=== PATIENT | male | born 1950 | race Caucasian/White ===

== ENCOUNTER 2022-07-10 13:10 | Outpatient (RCR) | payer OTHER, MEDICARE, SELFPAY ==
--- NOTE | 2022-07-11 14:18 | OT.OPGNE ---
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 The patient lives with his significant other who is able to assist patient minimally. He reports current I in dressing and mobility without an AD. He was educated on sling donning and doffing, post op exercises, polar care , positioning and one handed dressing. Patient asked great questions and all were answered satisfactorily. Occupational Therapy Treatment Plan - OP Goals Goals Within 1 visit, the patient will.. 1. understand how to don and doff sling, dress one handed, positioning and post op exercises. goal met Progress met Treatment Plan Treatment Plan Evaluation,Self-Care/Home Management,Education Certification Certification I Certify That: Therapy Services Provided, Therapy Plan Established, Therapy Plan Reviewed Recertification Information Recertification Information Initial Certification Date 07/10/22 Recertification Start Date 07/03/22 Provider Signature Shows Agreement With POC & Medical Necessity Physician Comment/Change Comment or Changes Physician NPI Number #
== END 2022-10-09 23:59 | disposition home or self-care (01) ==
PROVIDERS: Visit Provider Orthopaedic Surgery
DX: M19.012 Primary osteoarthritis, left shoulder (principal); M75.122 Complete rotator cuff tear or rupture of left shoulder, not specified as traumatic; S46.212A Strain of muscle, fascia and tendon of other parts of biceps, left arm, initial encounter; Z51.89 Encounter for other specified aftercare
CPT/HCPCS: 97110; 97165; 97535; X5282

== ENCOUNTER 2022-07-24 08:23 | Day surgery (SDC) | payer OTHER, MEDICARE, SELFPAY ==
[2022-07-22] MEDS: LACTATED RINGERS 1000 ML 1,000 ML 100 ML IV (07:00)
[2022-07-22 07:48] VITALS: BP 124/94; PULSE 99; RESP 16; TEMP 37.7; O2SAT 96
[2022-07-22] MEDS: ACETAMINOPHEN 500 MG TABLET 1000 MG PO (07:53)
[2022-07-22] MEDS: CELECOXIB 200 MG CAPSULE PO (07:54)
[2022-07-22 07:58] VITALS: BMI 27.2
--- NOTE | 2022-07-22 08:16 | SUR.PREOP ---
PRE-OP SHOULDER WASH WITH HYDROGEN PEROXIDE AND ALCOHOL COMPLETE
--- NOTE | 2022-07-22 09:17 | SUR.PREOP ---
PATIENT SURGERY IS BEING CANCELLED FOR TODAY. PATIENT WENT INTO A-FIB WHEN GETTING READY TO DO THE PAIN BLOCK. HIS HAS BEEN NOTIFIED. POSSIBLY RESCHEDULED FOR THURSDAY.
[2022-07-24] VITALS (16 sets, daily range): BP systolic 96–137; BP diastolic 58–96; PULSE 48–57; RESP 12–20; TEMP 36.4–36.9; O2SAT 93–100; BMI 27.2
[2022-07-24] MEDS: SODIUM CHLORIDE 0.9 % (FLUSH) 10 ML SYRINGE IVF (09:14)
[2022-07-24] MEDS: LACTATED RINGERS 1000 ML 1,000 ML 100 ML IV ×2 (09:15→10:28)
[2022-07-24] MEDS: CELECOXIB 200 MG CAPSULE PO (09:18)
[2022-07-24] MEDS: ACETAMINOPHEN 500 MG TABLET 1000 MG PO ×3 (09:18→23:25)
--- NOTE | 2022-07-24 09:33 | SUR.PREOP ---
TIME?OUT:?9:35 PT/RN/MDA?VERIFICATION?OF?SURGICAL?SITE Left Shoulder,?PROCEDURE Nerve Block,?AND?CONSENT OBTAINED?PRIOR?TO?INVASIVE?PROCEDURE Y
[2022-07-24] MEDS: fentaNYL 100 MCG/2 ML inj IVP (09:35)
[2022-07-24] MEDS: MIDAZOLAM HCL 1 MG/ML inj IVP (09:35)
[2022-07-24] MEDS: CEFAZOLIN 2 GM INJ IVP (09:52)
[2022-07-24] MEDS: TRANEXAMIC ACID 100 MG/ML INJ 1000 MG IV (09:55)
--- NOTE | 2022-07-24 10:43 | P.NB_ITS ---
Nerve Block Nerve Block Time Seen by Provider: 09:36 Date Seen: 07/24/22 Type of block requested by surgeon for post-operative analgesia: supraclavicular Side: left Time out performed: Yes Verification of patient name: Yes Verification of date of : Yes Site marking: site marked Name of person performing procedure: Anil Continuous monitoring Was continuous monitoring of O2 sat, B/P, monitor technician, recorded every 15 minutes?: Yes Procedure Checklist: sterile prep, needles and gloves Ultrasound guided. Images saved: Yes Medications given in 5ml increments after negative aspiration: Ropivicaine %: 0.5 mL: 20 Needle gauge: 22 Decadron (mg): 10 Precedex (mcg): 25 Patient tolerated procedure well: Yes Block Charges Block Charge (with Pro Fee): Brachial Plexus Use of Ultrasound Machine for Block: Yes- US Guidance/pain block
--- NOTE | 2022-07-24 10:43 | W.ANESCHARGE ---
Anesthesia Charges Start Date/Time Anesthesia Start Date: 07/24/22 Anesthesia Start Time: 09:42 Stop Date/Time Anesthesia Stop Date: 07/24/22 Anesthesia Stop Time: 12:52 Summary Extremes of Age - Over 70 or under 1: MDA
--- NOTE | 2022-07-24 12:12 | CRLHL7_ITS ---
For Patients: As a result of the Cures Act, medical imaging exams and procedure reports are released immediately into your electronic medical record. You may view this report before your referring provider. If you have questions, please contact your health care provider. Indication: POSTOP REVERSE SHOULDER ARTHROPLASTY Technique: Two views left shoulder Findings/Impression: Hardware from a left reverse total shoulder arthroplasty is in satisfactory position. Bone alignment is normal. No sign of acute fracture. Postop changes are within normal limits. Dictated by Derrell Forbes MD @ 07/24/2022 1:22:38 PM (Electronically Signed)
--- NOTE | 2022-07-24 12:14 | P.ORPRC_ITS ---
Procedure Note Date of procedure: 07/24/22 Procedure: PREOPERATIVE DIAGNOSIS: Left shoulder rotator cuff tear arthropathy POSTOPERATIVE DIAGNOSIS: Left shoulder rotator cuff tear arthropathy NAME OF OPERATION: Left upper extremity reverse shoulder arthroplasty SURGEON: Dennis Charles MD FIRE HYDRANT OPERATOR: Jessie Devi PA-C, EDEL Snow ANESTHESIA: General endotracheal ESTIMATED BLOOD LOSS: 100 mL COMPLICATIONS: None SPECIMENS: None DRAINS: None PREOPERATIVE ANTIBIOTICS: Ancef 2 grams IMPLANTS: 1. Tornier 29 mm x 40 mm baseplate 2. 39 mm standard glenosphere 3. 6B humeral stem 4. Low eccentric +0 humeral tray 5. 36mm +6 polyethylene INDICATIONS: The patient is a 71-year-old with a longstanding history of severe, unrelenting left shoulder pain secondary to rotator cuff tear arthropathy. Despite appropriate nonoperative management, including activity modification, anti-inflammatories, [id number] pain medication, physical therapy, and injections they continue to have pain and disability. Operative intervention was offered. The risks, benefits and expected outcomes were discussed in detail. These included but were not limited to: Infection, bleeding, injury to blood vessel or nerve, venous thromboembolism. All questions were answered to their satisfaction. Use of an operations and intelligence assistant was necessary throughout the case for patient positioning and safety, soft tissue retraction, and closure. PROCEDURE: General anesthesia was administered. The patient was placed in the lazy beach chair position on the operating room table. The left upper extremity was prepped and draped in the usual sterile fashion. A standard deltopectoral incision was made. Subcutaneous dissection was taken with electrocautery to the deltopectoral interval. The cephalic vein was mobilized, lateral branches were cauterized. The vein was taken medially with the pectoralis. We bluntly entered the deltopectoral interval. We freed up the deltoid. The upper 1/3 of the insertion of the pectoralis was divided with cautery. The static retractor was placed. The clavipectoral fascia and CA ligament were divided. The circumflex vessels were controlled with electrocautery. The biceps was dissected out of the bicipital groove, was tagged with a #2 FiberWire suture and divided proximally. Two fiberWire sutures were placed in the subscapularis. The subscap was subperiosteally elevated off of the lesser tuberosity. The humeral head was delivered into the wound. The intramedullary humeral cutting guide was placed. We made the cut at the anatomic neck, in 30? of retroversion. Humeral sounds were used to assess the diameter of the canal. The broach was placed and had good rotational stability. The calcar reamer was used and the protective base plate cover was placed. Attention was then turned to the glenoid. Hohmann retractors were placed posteriorly. The labrum and biceps stump were sharply debrided. The origin of the inferior glenohumeral ligaments were subperiosteally released off of the glenoid. The drill guide was placed. The guide pin was placed in 0? of cephalic tilt. The reamer was used to bleeding bone. This did not appear to have enough cephalic tilt. Therefore, we removed the guide pin and used the 10 degree cephalic tilt guide. The guide pin was replaced. The Reamer was used again. This nicely corrected the cephalic tilt. The central drill was used x2. The tap was used. The standard base plate was placed. This had excellent purchase. Locking screws were placed. The glenosphere was placed, the set screw was tightened. Attention then returned to the humerus. We placed a low eccentric standard base plate and standard poly. We reduced the shoulder and took it through a range of motion. It was found to be stable with appropriate soft tissue tension. Trial humeral components were removed. The biceps was tenodesed in the bicipital groove with drill holes and our previously placed FiberWire suture. We placed #2 FiberWire sutures in the lesser tuberosity for subsequent subscap repair. We assembled the humeral component on the back table. We placed it in the center of our subscapularis repair sutures and tapped it down to our humeral cut. This had excellent purchase. The shoulder was reduced and again was found to be stable with appropriate soft tissue tension. We did a 3 min dilute Betadine solution soak. We irrigated the wound with 3 L of normal saline via pulse lavage. We repaired the subscapularis to the lesser tuberosity with our previously placed FiberWire sutures. The deltopectoral interval was loosely reapproximated with an 0 Vicryl in an interrupted [id number] fashion. Subcutaneous tissues were closed with the 2-0 Vicryl and a running 3-0 Monocryl suture. The skin was sealed with glue. A dry dressing and sling were applied. Sponge and needle counts were correct x2. The patient tolerated the procedure well, there were no apparent complications. They were awakened and extubated in the operating room, taken to the postanesthesia care unit in satisfactory condition. PLAN: The patient will be mobilized with physical therapy. The sling will be used for 6 weeks postoperatively. Active range of motion in forward flexion and abduction as tolerates. No external rotation greater than 0? for 6 weeks postoperatively. They will be discharged to home once medically appropriate.
--- NOTE | 2022-07-24 12:52 | W.ANESCHARGE ---
Anesthesia Charges Start Date/Time Anesthesia Start Date: 07/24/22 Anesthesia Start Time: 09:42 Stop Date/Time Anesthesia Stop Date: 07/24/22 Anesthesia Stop Time: 12:52
--- NOTE | 2022-07-24 13:18 | SUR.PREOP ---
I have reviewed and concur with all assessments, medication administration, and documentation completed by Bry, student nurse.?
[2022-07-24] MEDS: LACTATED RINGERS 1000 ML 1,000 ML 75 ML IV (14:32)
--- NOTE | 2022-07-24 18:02 | PM.IMCN1 ---
Date of Consult Patient: Lux Patient Consult date: 07/24/22 Requesting Physician: Orthopedics Primary Care Provider: Di Andre CNP Consult Narrative Reason for consult: Management of medical problems after shoulder surgery Narrative: Dylan Young is a 71 year old right-handed male with history of atrial fibrillation, PE, heart failure, diabetes seen in followup of left total shoulder arthroplasty. Procedures performed by Dr. Charles requests consult for medical management following surgery. Patient was scheduled for surgery 2 days ago but preoperatively went into atrial fibrillation. Patient has been on metoprolol 200 mg daily chronically and took his last dose 1 week ago. He thought he was advised by his provider to stop all outpatient medications before surgery. He was in atrial fibrillation but not symptomatic. He took 1 dose of metoprolol and went back into sinus rhythm. Clinic records indicate he was advised to stop his rivaroxaban with his last dose on July 18. He was advised to avoid his losartan for 24 hours before surgery but continue his metoprolol until surgery. In the last 2 days he has been taking all of his medications except rivaroxaban. He had no symptoms associated with his atrial fibrillation. He did not have shortness of breath, chest pain, lightheadedness, unusual dyspnea. Preoperatively he reports he has been generally feeling fine. He gets healthcare through the [facility] and through [facility] in [place]. He tells me the [facility] is contemplating right carpal tunnel surgery, left total knee arthroplasty for him. Review of Systems Narrative: No recent illness or injury. Issues with atrial fibrillation, asymptomatic, as noted above. [facility] Medical History (Updated 07/24/22 @ 18:14 by Toñito Langley MD) Pulmonary embolism ?I26.99 - Other pulmonary embolism without acute cor pulmonale (ICD-10) Arthritis of left acromioclavicular joint ?M19.012 - Primary osteoarthritis, left shoulder (ICD-10) Strain of left biceps ?S46.212A - Strain of muscle, fascia and tendon of other parts of biceps, left arm, initial encounter (ICD-10) Rotator cuff tear, left ?M75.102 - Unspecified rotator cuff tear or rupture of left shoulder, not specified as traumatic (ICD-10) Stage 3a chronic kidney disease ?N18.31 - Chronic kidney disease, stage 3a (ICD-10) Congestive heart failure ?I50.9 - Heart failure, unspecified (ICD-10) Type 2 diabetes mellitus without complication ?E11.9 - Type 2 diabetes mellitus without complications (ICD-10) Hyperlipidemia ?E78.5 - Hyperlipidemia, unspecified (ICD-10) Old myocardial infarct ?I25.2 - Old myocardial infarction (ICD-10) Peripheral vascular disease ?I73.9 - Peripheral vascular disease, unspecified (ICD-10) Vascular disease ?I99.9 - Unspecified disorder of circulatory system (ICD-10) HTN (hypertension) ?I10 - Essential (primary) hypertension (ICD-10) ADRIAN (obstructive sleep apnea) ?G47.33 - Obstructive sleep apnea (adult) (pediatric) (ICD-10) A-fib ?I48.91 - Unspecified atrial fibrillation (ICD-10) Borderline diabetes ?R73.03 - Prediabetes (ICD-10) DVT (deep venous thrombosis) ?I82.409 - Acute embolism and thrombosis of unspecified deep veins of unspecified lower extremity (ICD-10) Surgical History (Updated 07/24/22 @ 18:13 by Toñito Langley MD) Status post replacement of left shoulder joint ?Z96.612 - Presence of left artificial shoulder joint (ICD-10) Hx of reconstruction of anterior cruciate ligament tear ?Z98.890 - Other specified postprocedural states (ICD-10) History of total right knee replacement ?Z96.651 - Presence of right artificial knee joint (ICD-10) History of arthroscopy of right shoulder ?Z98.890 - Other specified postprocedural states (ICD-10) Family History (Updated 07/24/22 @ 18:08 by Toñito Langley MD) Mother Hypotension Diabetes Father Lung cancer Social History (Updated 07/24/22 @ 18:11 by Toñito Langley MD) Narrative: He lives between [facility] with his significant other-Delilah. She is his healthcare power of managing attorney. His code status is DNR. He does not smoke. Drinks 2-4 alcoholic beverages per day. Smoking Status: Former smoker What tobacco products do you use: cigarettes Smoking quit date/years: >15 years ago Do you use any of these nicotine containing products: None Second hand tobacco smoke exposure: No How often do you have a drink containing alcohol: 2-4 times a month Alcohol type: beer and hard liquor How many standard drinks containing alcohol do you have on a typical day: 1 or 2 How often do you have six or more drinks on one occasion: Never AUDIT-C Alcohol total score: 2 Non-prescribed substance use: denies use Caffeine: Yes (coffee, 5 cups/week) service: Yes Meds Home Medications and Allergies Home Medications Medication Instructions Recorded Confirmed Type atorvastatin 40 mg tablet 20 mg PO HS 07/07/22 07/24/22 History cetirizine 10 mg tablet 10 mg PO QDAY PRN 07/07/22 07/24/22 History losartan 50 mg tablet 50 mg PO QDAY 07/07/22 07/24/22 History metoprolol succinate 200 mg 200 mg PO QDAY 07/07/22 07/24/22 History tablet,extended release 24 hr potassium chloride 20 mEq 20 meq PO QDAY 07/07/22 07/24/22 History tablet,extended release rivaroxaban 20 mg tablet (Xarelto) 20 mg PO QPM 07/07/22 07/22/22 History glucosamine sulfate 500 mg tablet 500 mg PO DAILY 07/22/22 07/24/22 History (Glucosamine) metformin 500 mg tablet,extended 1,000 mg PO BIDWM 07/22/22 07/24/22 History release 24 hr multivitamin (Daily Multi-Vitamin 1 tab PO DAILY 07/22/22 07/24/22 History tablet) Home Medication Comments: He has cut his metformin down to a 1000 mg in the morning and 500 mg in the evening due to diarrhea Allergies Allergy/AdvReac Type Severity Reaction Status Date / Time lisinopril Allergy Verified 07/24/22 08:43 oxycodone Allergy Verified 07/24/22 08:43 Exam Narrative: Exam Narrative: He is alert and appears in no distress. Eyes normal. Oropharynx normal. Neck is supple out mass or adenopathy. Respirations are clear to auscultation. Symmetric breath sounds. Cardiovascular: S1, S2, regular rate and rhythm. Abdomen: Bowel sounds active. Abdomen is soft without tenderness or mass. He has normal right upper extremity sensation motion and pulses. Left upper extremity is warm with good radial pulses. He has no motion in his left hand and minimal sensation in his left fingers. He reports fairly dense anesthesia over his left upper extremity the time I am seeing him. Lower extremities without edema intact pedal pulses and motion in both legs. Const: Vital Signs, click to edit/add: Vital Signs - 24 hr 07/24/22 09:02 07/24/22 09:33 07/24/22 09:35 Temperature 98.3 F Pulse Rate 52 L 52 L 53 L Respiratory Rate 16 16 16 Blood Pressure 132/87 137/91 H 133/91 H Pulse Oximetry 97 100 99 Oxygen Delivery Me thod Room Air Nasal Cannula Nasal Cannula Oxygen Flow Rate 3 3 07/24/22 12:48 07/24/22 12:55 07/24/22 13:00 Temperature 97.9 F Pulse Rate 57 L 56 L 56 L Respiratory Rate 12 12 14 Blood Pressure 116/69 113/73 106/79 Pulse Oximetry 93 93 93 Oxygen Delivery Me thod Room Air Oxygen Flow Rate 07/24/22 13:05 07/24/22 13:10 07/24/22 13:15 Temperature 98.1 F Pulse Rate 54 L 55 L 53 L Respiratory Rate 16 20 16 Blood Pressure 96/58 L 130/79 114/83 Pulse Oximetry 95 93 96 Oxygen Delivery Me thod Oxygen Flow Rate Documenting provider has reviewed patient's vital signs: yes Assessment and Plan Assessment and plan (1) Status post replacement of left shoulder joint: Problem comment: 07/24/[address] Charlse Status: Acute (2) ADRIAN (obstructive sleep apnea): Problem comment: On CPAP Status: Acute (3) Congestive heart failure: Problem comment: Had reduced ejection fraction of 20 to 25% . Was treated for atrial fibrillation and heart failure and follow-up echo in 2019 showed ejection fraction of 50%. Currently appears to be well compensated. Status: Acute (4) Type 2 diabetes mellitus without complication: Status: Acute (5) Pulmonary embolism: Problem comment: Resume rivaroxaban for AFib and pulmonary embolism/vte prophylaxis Status: Acute (6) A-fib: Problem comment: Paroxysmal. Surgery postponed 2 days. Now in sinus rhythm. Status: Acute Plan Patient will be observed in the hospital overnight for any medical complications and manage postoperative symptoms. PT OT and routine pain medication management. Home CPAP. Resume home medications including rivaroxaban. Monitor for AFib. Total time spent today is 40 minutes, 30 minutes in coordination of care and discussing with patient and other providers ongoing evaluation management of postoperative care and management of medical problems
[2022-07-24] MEDS: CEFAZOLIN 2 GM in 0.9 % SODIUM CHLORIDE Mini-bag 100 ML IVPB ×2 (18:57→23:25)
[2022-07-24] MEDS: METFORMIN ER 500 MG PO (18:58)
[2022-07-24] MEDS: RIVAROXABAN 10 MG TABLET 20 MG PO (18:58)
--- NOTE | 2022-07-24 20:30 | PC.NURSE ---
Nursing Care Hours: [id number] Pt this shift arrived from PACU alert and oriented. Pale skin, VSS, bradycardia. Left extremity numb, pulse present and regular. Arm in sling, bandage CDI. Ice applied. IV patent. Advanced to regular diet, tolerated well. Up to void and sit in recliner.
[2022-07-24] MEDS: SENNOSIDES 1 TAB TABLET 2 TAB PO (20:55)
[2022-07-24] MEDS: ATORVASTATIN CALCIUM 40 MG TABLET 20 MG PO (20:55)
[2022-07-25 03:00] VITALS: BP 113/78; PULSE 54; RESP 16; TEMP 36.6; O2SAT 98
[2022-07-25] MEDS: LACTATED RINGERS 1000 ML 1,000 ML 75 ML IV (03:13)
[2022-07-25] MEDS: ACETAMINOPHEN 500 MG TABLET 1000 MG PO (06:09)
[2022-07-25 07:00] VITALS: BP 115/78; PULSE 56; RESP 18; TEMP 36.6
[2022-07-25 07:29] LABS: Hematocrit 34.7 % (37.0-53.0); Hemoglobin* 11.9 gm/dL (13.5-17.5); Mean Corpuscular HGB Conc 34 gm/dL (32-36); Mean Corpuscular Hemoglobin 32 pg (26-34); Mean Corpuscular Volume 92 fL (80-100); Platelet Count* 166 K/uL (140-440); Red Blood Count 3.78 m/uL (4.30-5.90); White Blood Count* 10.44 K/uL (4.50-11.00)
[2022-07-25 07:40] LABS: Slide Review Reflex No
--- NOTE | 2022-07-25 07:41 | PM.ORPN ---
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 Interval history: Dylan is comfortable this morning. He denies nausea, vomiting. He has little movement in his left upper extremity. Block is working well. Ortho Exam Narrative Exam Narrative: Alert and oriented x3. Patient is in no acute distress. Converses without labored breathing. Hearing is grossly intact. Ambulates with a normal gait. Left upper extremity is in a sling. Emanation of left upper extremity shows the hand is warm. Capillary refill less than 2 seconds. Dressing is intact. Edema is present. No sign of infection. No erythema. Slight flexion of his fingers. No extension of the fingers or wrist. Const Vital Signs, click to edit/add: Vital Signs - 24 hr 07/24/22 09:02 07/24/22 09:33 07/24/22 09:35 Temperature 98.3 F Pulse Rate 52 L 52 L 53 L Pulse Rate [Left Pulse Oximeter] Pulse Rate [Left Radial] Respiratory Rate 16 16 16 Blood Pressure 132/87 137/91 H 133/91 H Blood Pressure [Right Arm] Pulse Oximetry 97 100 99 Oxygen Delivery Method Room Air Nasal Cannula Nasal Cannula Oxygen Flow Rate 3 3 07/24/22 12:48 07/24/22 12:55 07/24/22 13:00 Temperature 97.9 F Pulse Rate 57 L 56 L 56 L Pulse Rate [Left Pulse Oximeter] Pulse Rate [Left Radial] Respiratory Rate 12 12 14 Blood Pressure 116/69 113/73 106/79 Blood Pressure [Right Arm] Pulse Oximetry 93 93 93 Oxygen Delivery Method Room Air Oxygen Flow Rate 07/24/22 13:05 07/24/22 13:10 07/24/22 13:15 Temperature 98.1 F Pulse Rate 54 L 55 L 53 L Pulse Rate [Left Pulse Oximeter] Pulse Rate [Left Radial] Respiratory Rate 16 20 16 Blood Pressure 96/58 L 130/79 114/83 Blood Pressure [Right Arm] Pulse Oximetry 95 93 96 Oxygen Delivery Method Oxygen Flow Rate 07/24/22 13:45 07/24/22 14:00 07/24/22 14:15 Temperature 97.6 F Pulse Rate 53 L Pulse Rate [Left Pulse Oximeter] 48 L Pulse Rate [Left Radial] 54 L Respiratory Rate 18 18 18 Blood Pressure Blood Pressure [Right Arm] 117/96 H 123/80 118/77 Pulse Oximetry 97 97 Oxygen Delivery Method Room Air Room Air Room Air Oxygen Flow Rate 07/24/22 14:15 07/24/22 14:30 07/24/22 15:00 Temperature 97.7 F Pulse Rate Pulse Rate [Left Pulse Oximeter] 48 L 50 L Pulse Rate [Left Radial] 48 L Respiratory Rate 18 18 18 Blood Pressure Blood Pressure [Right Arm] 114/77 103/81 107/73 Pulse Oximetry 97 96 96 Oxygen Delivery Method Room Air Room Air Room Air Oxygen Flow Rate 07/24/22 20:07 07/24/22 23:00 07/24/22 23:00 Temperature 98.5 F 98.2 F Pulse Rate Pulse Rate [Left Pulse Oximeter] 57 L 57 L 57 L Pulse Rate [Left Radial] Respiratory Rate 16 16 16 Blood Pressure Blood Pressure [Right Arm] 114/84 112/83 Pulse Oximetry 97 97 Oxygen Delivery Method Room Air Room Air Oxygen Flow Rate 07/25/22 03:00 Temperature 97.8 F Pulse Rate Pulse Rate [Left Pulse Oximeter] 54 L Pulse Rate [Left Radial] Respiratory Rate 16 Blood Pressure Blood Pressure [Right Arm] 113/78 Pulse Oximetry 98 Oxygen Delivery Method Room Air Oxygen Flow Rate Assessment and Plan Assessment and plan (1) Status post replacement of left shoulder joint: Problem details: 07/24/[address] Charles Status: Acute Assessment and Plan: Plan for discharge is to home when they meet discharge criteria. Patient will wear the sling for 6 weeks post surgery. They can take it off for comfort and for exercises. Activity: no external rotation of the operative shoulder past 0? x 6 weeks. Forward flexion and abduction of the shoulder is allowed as tolerated. They will work on range of motion of the elbow, wrist, fingers once the block has wore off on the operative extremity. Patient will begin physical therapy for the operative shoulder next week. For discharge, oxycodone and Tylenol for pain. Do not drive while on narcotic pain medication. Drive only when safe to do so, when they have normal use/function of the upper extremity, this will likely take 6 weeks. Patient will minimize and discontinue the narcotic as soon as possible. If pain is minimal, he will use Tylenol only for pain. Remove dressing in 1 week. Dressing is waterproof. May shower. Surgical glue covers the wound. Do not scrub the wound. Expect swelling and bruising about the shoulder and upper extremity. Use of ice/active ice without restriction. Notify Orthopedics his swelling is excessive. notify Orthopedics with any questions or concerns. [phone] Return to Orthopedic clinic next week for a wound check Return to clinic in [address] Charles. Patient is aware that he should wear the CPAP machine at night while taking narcotic pain medication. He normally uses his CPAP at night.. (2) ADRIAN (obstructive sleep apnea): Problem details: On CPAP Status: Acute (3) Congestive heart failure: Problem details: Had reduced ejection fraction of 20 to 25% . Was treated for atrial fibrillation and heart failure and follow-up echo in 2019 showed ejection fraction of 50%. Currently appears to be well compensated. Status: Acute (4) Type 2 diabetes mellitus without complication: Status: Acute (5) Pulmonary embolism: Problem details: Resume rivaroxaban for AFib and pulmonary embolism/vte prophylaxis Status: Acute (6) A-fib: Problem details: Paroxysmal. Surgery postponed 2 days. Now in sinus rhythm. Status: Acute
[2022-07-25 07:47] LABS: Potassium* 4.3 mmol/L (3.6-5.1); Sodium* 136 mmol/L (135-149)
[2022-07-25 07:50] LABS: Blood Urea Nitrogen* 22 mg/dL (7-30); Creatinine* 1.1 mg/dL (0.5-1.5); Est. Creatinine Clearance* 61.76; Estimated Glomerular Filt Rate 71 ml/min
[2022-07-25] MEDS: CEFAZOLIN 2 GM in 0.9 % SODIUM CHLORIDE Mini-bag 100 ML IVPB (07:51)
[2022-07-25] MEDS: METOPROLOL SUCCINATE (XL) 100 MG TAB 200 MG PO (08:54)
[2022-07-25] MEDS: POTASSIUM CHLORIDE 10 MEQ CAPSULE ER 20 MEQ PO (08:54)
[2022-07-25] MEDS: GLUCOSAMINE SULFATE 500 MG CAPSULE PO (08:54)
[2022-07-25] MEDS: SENNOSIDES 1 TAB TABLET 2 TAB PO (08:54)
[2022-07-25] MEDS: LOSARTAN POTASSIUM 50 MG TABLET PO (08:55)
[2022-07-25] MEDS: MULTIVITAMIN/MINERALS 1 TABLET 1 TAB PO (08:55)
[2022-07-25] MEDS: METFORMIN ER 500 MG 1000 MG PO (08:55)
--- NOTE | 2022-07-25 10:41 | PC.NURSE ---
Discharge: Patient pleasant and cooperative. Patient vitally stable, lungs clear, BS WNL, IV removed, catheter intact. Patient independent and denies pain. Left shoulder dressing C/D/I. Patient urinating and tolerating regular diet. Patient signed belongings sheet and discharge form. Patient left the floor by foot with and belongings at 1038.
--- NOTE | 2022-07-25 14:00 | PC.SOCIAL ---
Per therapy, pt is moving well. Pt has assistance from pt's significant other at home during recovery. No identified needs for social work at this time.
== END 2022-07-25 10:38 | disposition home or self-care (01) ==
LOC: OR 08:24 → MEDSURG 08:27
PROVIDERS: PCP Nurse Practitioner Family; Visit Provider Orthopaedic Surgery
PROC: 0RRJ0JZ Replacement of Right Shoulder Joint with Synthetic Substitute, Open Approach (ICD-10-PCS; CPT 23472; principal; 2022-07-24 10:15)
DX: M75.102 Unspecified rotator cuff tear or rupture of left shoulder, not specified as traumatic (principal); G89.18 Other acute postprocedural pain; I48.0 Paroxysmal atrial fibrillation; Z79.01 Long term (current) use of anticoagulants; Z86.711 Personal history of pulmonary embolism; G47.33 Obstructive sleep apnea (adult) (pediatric); I13.0 Hypertensive heart and chronic kidney disease with heart failure and stage 1 through stage 4 chronic kidney disease, or unspecified chronic kidney disease; I50.9 Heart failure, unspecified; N18.31 Chronic kidney disease, stage 3a; E11.22 Type 2 diabetes mellitus with diabetic chronic kidney disease; Z86.718 Personal history of other venous thrombosis and embolism; I25.2 Old myocardial infarction
CPT/HCPCS: 23472; 01638; 36415; 64415; 73030; 76942; 82565; 82962; 84132; 84295; 84520; 85027; 97110; 97116; 97161; 97165; 97535; 99100; A9153; A9270; C1713; C1776; J0330; J0690; J1100; J2250; J2405; J2704; J2795; J3010; J3490; J7120; L3670

== ENCOUNTER 2022-07-30 17:47 | Outpatient (CLI) | payer OTHER, MEDICARE, SELFPAY ==
--- NOTE | 2022-07-30 18:00 | CRLHL7_ITS ---
For Patients: As a result of the Century Cures Act, medical imaging exams and procedure reports are released immediately into your electronic medical record. You may view this report before your referring provider. If you have questions, please contact your health care provider. Indication: Swelling and pain. Technique: Ultrasound venous duplex upper left extremity. Compression venous exam was performed using paredes-scale, color Doppler, and spectral Doppler imaging. Comparison: None. Findings: The left internal jugular, subclavian, and axillary veins are patent with normal waveforms. The brachial, basilic, and cephalic veins are fully compressible. No soft tissue abnormalities seen. Impression: Normal ultrasound of the left upper extremity veins. Dictated by Dimitris Moreira MD @ 07/30/2022 7:02:06 PM (Electronically Signed)
== END 2022-07-30 17:48 | disposition home or self-care (01) ==
LOC: US 17:47
PROVIDERS: PCP Nurse Practitioner Family; Visit Provider Physician Assistant
DX: M79.89 Other specified soft tissue disorders (principal); I26.99 Other pulmonary embolism without acute cor pulmonale; Z96.612 Presence of left artificial shoulder joint
CPT/HCPCS: 93971